=== PATIENT | male | born 1985 | race Two or more races ===

== ENCOUNTER 2016-05-26 10:57 | Emergency (ER) | payer MEDICAID ==
[~2016-05-26] VITALS: Ht 167.6 cm; Wt 54.4 kg
[~2016-05-26 10:57] MED LIST: ALBUTEROL SULF8.5 GM INH; AZITHROMYCIN250 MG ORAL; LACTULOSE20 GM/301 ORAL; NKM; PROMETHAZINE-C118 M1 ORAL; ROBITUSSIN AC5 ML ORAL; ZOFRAN4 M1 ORAL
[2016-05-26] MEDS ORDERED: TdaP Vaccine 0.5ml Syr IM ONE (11:30)
--- NOTE | 2016-05-26 11:59 | Diagnostic Imaging Report ---
Indication: PAIN Technique: XRAY HAND MIN 3V RIGHT Comparison: None. Findings: The osseous structures are intact. There is no fracture or destruction. The visualized joints are normal. The soft tissues are unremarkable. Impression: Normal.
[2016-05-26] MEDS ORDERED: Bacitracin Oint UD TOPIC ONE (12:15)
[2016-05-26] MEDS ORDERED: Lidocaine 1% Plain 30 ml INJ ONE (12:15)
[2016-05-26 13:10] VITALS: BP 112/66
--- NOTE | 2016-06-14 07:14 | Emergency Room Report ---
History of Present Illness General Chief Complaint: Laceration Source: Patient Present Illness HPI [id number] with laceration to right middle finger after accidentally dropping window on it. Unknown last tetanus. Pain only to right middle finger. he is right handed. Allergies: Coded Allergies: No Known Allergies (Unverified , 12/18/13) Patient History Past Medical History: none Past Surgical History: none Pertinent Family History: none Social History: Denies: alcohol use, drug use, smoking Immunizations: UTD Reviewed Nursing Documentation: PMH: Agreed, PSxH: Agreed Nursing Documentation-PMH Past Medical History: No Stated History Hx Cardiac Problems: No Hx Hypertension: No Hx Pacemaker: No Hx Asthma: Yes Hx COPD: Yes - Childhood Hx Diabetes: No Hx Cancer: No Hx Gastrointestinal Problems: No Hx Dialysis: No Hx Neurological Problems: No Hx Cerebrovascular Accident: No Hx Seizures: No Review of Systems All Other Systems: negative except mentioned in HPI Physical Exam Vital Signs Date Time Temp Pulse Resp B/P Pulse Ox O2 Delivery O2 Flow Rate FiO2 05/26/16 11:09 98.1 81 14 104/59 98 05/26/16 13:10 Room Air Sp02 EP Interpretation: reviewed, normal General Appearance: normal inspection, well appearing, no apparent distress, alert Head: atraumatic ENT: normal ENT inspection, hearing grossly normal, normal voice Neck: normal inspection, full range of motion, supple, no bony tend Respiratory: normal inspection, lungs clear, normal breath sounds, no respiratory distress, no retraction, no wheezing Cardiovascular #1: regular rate, rhythm, no edema Gastrointestinal: normal inspection, normal bowel sounds, non tender, soft, no guarding, no hernia Genitourinary: no CVA tenderness Musculoskeletal: other - Right hand: middle finger overlying PIP there is a 5cm linear laceration at dorsal aspect. Able to flex, extend. Doubt tendon involvement. No FB visualized. Wound explored to base. Neurologic: normal inspection, alert, oriented x3, responsive, rivet tester III-XII nml as tested, motor strength/tone normal, speech normal Psychiatric: normal inspection Skin: normal inspection, normal color, no rash Lymphatic: normal inspection Procedures Laceration/Wound Repair Laceration/Wound Repair : Consent: Verbal Wound Location: upper extremity Wound's Depth, Shape: superficial Wound Length (cm): 5 Wound Explored: clean Betadine Prep?: Yes Anesthesia: 1% Lidocaine Wound Debrided: minimal Wound Repaired With: sutures Suture Size/Type: 4:0, proline Number of Sutures: 5 Layer Closure?: No Sterile Dressing Applied?: Yes Splint Applied?: No Sling Applied?: No Patient Tolerated: Well Complications: None Medical Decision Making Diagnostic Impression: Primary Impression: Laceration ER Course No fracture or dislocation on ED review of XRAY Laceration repaired Tetanus updated DC home with followup parameters discussed Chest X-Ray Diagnostic Results Other Impression Right hand 3 views ED review No acute fracture, dislocation or soft tissue injury Last Vital Signs Date Time Temp Pulse Resp B/P Pulse Ox O2 Delivery O2 Flow Rate FiO2 05/26/16 13:10 98.0 05/26/16 13:10 77 16 112/66 100 Room Air Status: improved Disposition: HOME, SELF-CARE Condition: Stable Referrals: NOT CHOSEN IPA/,REFERRING (PCP) MARIZA STROEY M.D. June 14, 2016 07:14
== END 2016-05-26 13:10 | disposition home or self-care (01) ==
LOC: EMR 11:47
DX: S61.212A Laceration without foreign body of right middle finger without damage to nail, initial encounter (principal); Z23 Encounter for immunization; W22.8XXA Striking against or struck by other objects, initial encounter; Y93.9 Activity, unspecified; Y92.9 Unspecified place or not applicable; J45.909 Unspecified asthma, uncomplicated; J44.9 Chronic obstructive pulmonary disease, unspecified
CPT/HCPCS: 12002; 73130; 90471; 90715; 99283; J2001

== ENCOUNTER 2016-12-07 00:57 | Emergency (ER) | payer MEDICAID ==
[~2016-12-07] VITALS: Ht 165.1 cm; Wt 54.4 kg
[2016-12-07 01:20] VITALS: BP 128/80
[2016-12-07] MEDS ORDERED: IBUPROFEN600 MG ORAL (01:53)
[2016-12-07] MEDS ORDERED: AUGMENTIN 875-1 EAC1 ORAL (01:53)
[2016-12-07 02:35] VITALS: BP 128/80
--- NOTE | 2016-12-08 06:53 | Emergency Room Report ---
History of Present Illness General Chief Complaint: Toothache Source: Patient Present Illness HPI 32-year-old male no significant past medical history presenting with left lower tooth pain for more than one week. Throbbing. Patient states that he is still been able to eat and drink. Has not seen a dentist for quite a long time. No purulent drainage, no fever Allergies: Coded Allergies: No Known Allergies (Unverified , 12/18/13) Patient History Past Medical History: see triage record Past Surgical History: none Pertinent Family History: none Reviewed Nursing Documentation: PMH: Agreed, PSxH: Agreed Nursing Documentation-PMH Hx Cardiac Problems: No Hx Hypertension: No Hx Pacemaker: No Hx Asthma: Yes Hx COPD: Yes - Childhood Hx Diabetes: No Hx Cancer: No Hx Gastrointestinal Problems: No Hx Dialysis: No Hx Neurological Problems: No Hx Cerebrovascular Accident: No Hx Seizures: No Review of Systems All Other Systems: negative except mentioned in HPI Physical Exam Vital Signs Date Time Temp Pulse Resp B/P (MAP) Pulse Ox O2 Delivery O2 Flow Rate FiO2 12/07/16 01:07 97.7 66 18 128/80 99 Room Air Sp02 EP Interpretation: reviewed, normal General Appearance: normal inspection, well appearing, no apparent distress, alert, GCS 15, non-toxic Head: normocephalic, atraumatic Eyes: bilateral eye normal inspection, bilateral eye PERRL, bilateral eye EOMI ENT: normal pharynx, normal voice, moist mucus membranes, other - Poor dentition, left lower molar with dental caries, no periapical abscess however erythema/redness no purulent drainage Neck: normal inspection, full range of motion, supple Respiratory: normal inspection, lungs clear, normal breath sounds, no respiratory distress, no retraction, no wheezing, speaking full sentences, chest symmetrical Cardiovascular #1: normal inspection, regular rate, rhythm, no edema, normal capillary refill Cardiovascular #2: 2+ radial (R), 2+ radial (L) Gastrointestinal: normal inspection, non tender, soft, non-distended, no guarding Genitourinary: no CVA tenderness Musculoskeletal: normal inspection, back normal, normal range of motion, non- tender Neurologic: normal inspection, alert, oriented x3, responsive, motor strength/ tone normal, sensory intact, normal gait, speech normal Psychiatric: normal inspection, judgement/insight normal, memory normal Skin: normal inspection, normal color, no rash, warm/dry, well hydrated, normal turgor Medical Decision Making Diagnostic Impression: Primary Impression: Oral cellulitis Additional Impression: Toothache ER Course 31-year-old male with left lower tooth pain for more than one week DDX: Dental caries, no sign of abscess, oral cellulitis Plan: Pain control ER course: Patient has remained stable during ED stay. Disposition: Patient is to be discharged to home. Prescriptions given are Augmentin and Motrin Patient took to follow up with dentist in 2 days Strict return precautions discussed with patient such as fever, chills, worsening/severe pain, nausea, vomiting, which may indicate severe illness. Patient verbalizes understanding and agrees with plan. Please note that this Emergency Department Report was dictated using [employer] compliance representative technology software, occasionally this can lead to erroneous entry secondary to interpretation by the dictation equipment Last Vital Signs Date Time Temp Pulse Resp B/P (MAP) Pulse Ox O2 Delivery O2 Flow Rate FiO2 12/07/16 02:35 97.7 66 18 128/80 99 Room Air Disposition: HOME, SELF-CARE Condition: Stable Scripts Amoxicillin/Potassium Clav 875-125* (AUGMENTIN 875-125 TABLET*) 1 Each Tablet 1 TAB ORAL TWICE A DAY for 7 Days, #14 TAB 0 Refills Prov: Caitlin Christian M.D. 12/07/16 Ibuprofen* (MOTRIN*) 600 Mg Tablet 600 MG ORAL FOUR TIMES A DAY, #30 TAB 0 Refills Prov: Caitlin Christian M.D. 12/07/16 Patient Instructions: Cellulitis, Dental Pain Caitlin Christian M.D. Dec 08, 2016 06:53
== END 2016-12-07 02:35 | disposition home or self-care (01) ==
LOC: EMR 01:28
DX: K12.2 Cellulitis and abscess of mouth (principal); K08.89 Other specified disorders of teeth and supporting structures; J44.9 Chronic obstructive pulmonary disease, unspecified
CPT/HCPCS: 99284

== ENCOUNTER 2017-01-07 18:20 | Emergency (ER) | payer MEDICAID ==
[~2017-01-07] VITALS: Ht 165.1 cm; Wt 54.4 kg
[~2017-01-07 18:20] MED LIST changes: +AUGMENTIN 875-1 EAC1 ORAL; +IBUPROFEN600 MG ORAL
[2017-01-07] MEDS ORDERED: Norco 5mg/325mg tab ORAL ONE (19:00)
--- NOTE | 2017-01-07 19:43 | Emergency Room Report ---
History of Present Illness General Chief Complaint: Lower Extremity Injury Source: Patient Present Illness HPI 31-year-old male presents to the emergency department complaining of 8/10 in severity left heel pain and left lateral foot pain status post mechanical fall down several stairs earlier today. Patient denies hitting his head he denies loss of consciousness. Patient reports a mild swelling he currently is using crutches. Patient is wondering if he may have fractured one of the bones in his foot. Patient states pain is exacerbated upon walking. Denies numbness tingling or loss of sensation or gross motor movements of the extremities, incontinence of bowel or bladder. Denies CP, Palpitations, LOC, AMS, dizziness, Changes in Vision, Sensation, paresthesias, or a sudden severe headache. Allergies: Coded Allergies: No Known Allergies (Unverified , 12/18/13) Patient History Past Medical History: see triage record Past Surgical History: none Pertinent Family History: none Immunizations: UTD Reviewed Nursing Documentation: PMH: Agreed, PSxH: Agreed Nursing Documentation-PMH Past Medical History: No History, Except For Hx Cardiac Problems: No Hx Hypertension: No Hx Pacemaker: No Hx Asthma: Yes Hx COPD: Yes - Childhood Hx Diabetes: No Hx Cancer: No Hx Gastrointestinal Problems: No Hx Dialysis: No Hx Neurological Problems: No Hx Cerebrovascular Accident: No Hx Seizures: No Review of Systems All Other Systems: negative except mentioned in HPI Physical Exam Vital Signs Date Time Temp Pulse Resp B/P (MAP) Pulse Ox O2 Delivery O2 Flow Rate FiO2 01/07/17 18:34 97.9 85 16 114/73 98 Room Air Sp02 EP Interpretation: reviewed, normal General Appearance: no apparent distress, alert, GCS 15, non-toxic Head: normocephalic, atraumatic Eyes: bilateral eye normal inspection, bilateral eye PERRL ENT: hearing grossly normal, normal pharynx, no angioedema, normal voice Neck: full range of motion Respiratory: lungs clear, normal breath sounds, speaking full sentences Cardiovascular #1: regular rate, rhythm, normal capillary refill Cardiovascular #2: 2+ dorsalis pedis (R), 2+ dorsalis pedis (L) Musculoskeletal: back normal, gait/station normal, normal range of motion, tender - TTP to the left heel and lateral left foot. no obvious deformity no bruises. Neurologic: alert, oriented x3, responsive, motor strength/tone normal, sensory intact, speech normal Skin: normal color, no rash, warm/dry, well hydrated Medical Decision Making PA Attestation Dr. Meier is my supervising Physician whom patient management has been discussed with. Diagnostic Impression: Primary Impression: Sprain of foot, left Qualified Codes: S93.602A - Unspecified sprain of left foot, initial encounter Additional Impression: Left ankle sprain Qualified Codes: S93.402A - Sprain of unspecified ligament of left ankle, initial encounter ER Course Pt. presents to the ED c/o left heel and lateral foot pain s/p mechanical fall. Ddx considered but are not limited to Fracture, dislocation, contusion, Sprain/ Strain/Spasm Vital signs: are WNL, pt. is afebrile H&PE are most consistent with musculoskeletal injury will perform imaging to r/ o fractures/dislocations. ORDERS: - X-ray : negative ED INTERVENTIONS: - Percocet PO - Air Splint applied to the left ankle by sow farm barn technician. Pt. remains neurovascularly intact. DISCHARGE: At this time pt. is stable for d/c to home. Will provide printed patient care instructions, and any necessary prescriptions. Care plan and follow up instructions have been discussed with the patient prior to discharge. Last Vital Signs Date Time Temp Pulse Resp B/P (MAP) Pulse Ox O2 Delivery O2 Flow Rate FiO2 01/07/17 18:34 97.9 85 16 114/73 98 Room Air Disposition: HOME, SELF-CARE Condition: Stable Scripts Ibuprofen* (MOTRIN*) 600 Mg Tablet 600 MG ORAL THREE TIMES A DAY, #30 TAB 0 Refills Prov: Amie Fair 01/07/17 Departure Forms: Return to Work Return to Work Date: Jan 10, 2017 Work Restrictions: No Heavy Lifting, No Prolonged Standing Return to Full Activity: Jan 17, 2017 Patient Instructions: Ankle Sprain, Foot Sprain Additional Instructions: Take medications as directed. Follow up with a Primary Care Provider in 3-5 days, even if your symptoms have resolved. --Please review list of primary care clinics, if you do not already have a primary care provider Return sooner to ED if new symptoms occur, or current symptoms become worse. - Please note that this Emergency Department Report was dictated using [employer]ive writing teacher technology software, occasionally this can lead to erroneous entry secondary to interpretation by the dictation equipment. Amie Fair Jan 07, 2017 19:43
[2017-01-07] MEDS ORDERED: IBUPROFEN600 MG ORAL (19:47)
[2017-01-07 19:57] VITALS: BP 114/73
--- NOTE | 2017-01-08 09:49 | Diagnostic Imaging Report ---
Indication: PAIN Technique: 3 views left foot Comparison: none Findings: No acute fractures. No dislocations. Joint spaces are preserved. Impression: Negative
== END 2017-01-07 19:57 | disposition home or self-care (01) ==
LOC: EMR 18:58
DX: S93.602A Unspecified sprain of left foot, initial encounter (principal); S93.402A Sprain of unspecified ligament of left ankle, initial encounter; W10.9XXA Fall (on) (from) unspecified stairs and steps, initial encounter; Y92.89 Other specified places as the place of occurrence of the external cause; J44.9 Chronic obstructive pulmonary disease, unspecified
CPT/HCPCS: 99283

== ENCOUNTER 2017-02-08 19:59 | Emergency (ER) | payer MEDICAID ==
[~2017-02-08] VITALS: Ht 165.1 cm; Wt 54.4 kg
[2017-02-08 20:20] VITALS: BP 131/84
[2017-02-08] MEDS ORDERED: ZOFRAN ODT4 MG ORAL (20:46)
[2017-02-08 21:00] VITALS: BP 131/84
--- NOTE | 2017-02-10 08:53 | Emergency Room Report ---
History of Present Illness General Chief Complaint: Abdominal Pain Source: Patient Present Illness HPI Patient was at his has had recent flulike symptoms with increased cough Soon after that patient developed increased abdominal discomfort Epigastric pressure and vomiting Ongoing for the past 2 days Denies any fevers or chills denies any obvious diarrhea at this time Denies any rash Pain is 3/10 cramping in nature and pressure Denies any neck pain or photophobia Allergies: Coded Allergies: No Known Allergies (Unverified , 12/18/13) Patient History Past Medical History: see triage record Pertinent Family History: none Reviewed Nursing Documentation: PMH: Agreed, PSxH: Agreed Nursing Documentation-PMH Hx Cardiac Problems: No Hx Hypertension: No Hx Pacemaker: No Hx Asthma: Yes Hx COPD: Yes - Childhood Hx Diabetes: No Hx Cancer: No Hx Gastrointestinal Problems: No Hx Dialysis: No Hx Neurological Problems: No Hx Cerebrovascular Accident: No Hx Seizures: No Review of Systems All Other Systems: negative except mentioned in HPI Physical Exam Vital Signs Date Time Temp Pulse Resp B/P (MAP) Pulse Ox O2 Delivery O2 Flow Rate FiO2 02/08/17 20:08 97.9 99 18 131/84 100 Room Air Sp02 EP Interpretation: reviewed, normal General Appearance: well appearing, no apparent distress Head: normocephalic, atraumatic Eyes: bilateral eye PERRL, bilateral eye EOMI ENT: hearing grossly normal, normal pharynx, TMs + canals normal, uvula midline Neck: full range of motion, supple, no meningismus, no bony tend Respiratory: lungs clear, normal breath sounds, no rhonchi, no respiratory distress, no retraction, no accessory muscle use Cardiovascular #1: normal peripheral pulses, regular rate, rhythm, no edema, no gallop, no JVD, no murmur Gastrointestinal: normal bowel sounds, non tender, soft, no mass, no organomegaly, non-distended, no guarding, no hernia, no pulsatile mass, no rebound Genitourinary: no CVA tenderness Musculoskeletal: normal inspection Neurologic: oriented x3, responsive, dredge worker III-XII nml as tested, motor strength/ tone normal, sensory intact Psychiatric: mood/affect normal Skin: normal color, no rash, warm/dry, palpation normal Lymphatic: normal inspection, no adenopathy Medical Decision Making Diagnostic Impression: Primary Impression: flu symptoms ER Course Patient has a benign abdominal exam appears clinically hydrated patient will have intervention for the vomiting At this time appears to have findings appropriate for flu symptoms and will have initial conservative outpatient trial Last Vital Signs Date Time Temp Pulse Resp B/P (MAP) Pulse Ox O2 Delivery O2 Flow Rate FiO2 02/08/17 21:00 99 18 131/84 100 Room Air 02/08/17 20:20 97.9 Status: improved Disposition: HOME, SELF-CARE Condition: Improved Scripts Ondansetron Odt* (ZOFRAN ODT*) 4 Mg Tab.rapdis 4 MG ORAL Q6H Y for Nausea & Vomiting, #15 TAB 0 Refills Prov: MADAN CURRAN D.O. 02/08/17 Referrals: NOT CHOSEN IPA/MD,REFERRING (PCP) Patient Instructions: Influenza, Adult, [id number], Abdominal Pain, Adult Additional Instructions: Patient is provided with the discharge instructions notified to follow up with primary doctor in the next 2-3 days otherwise return to the er with any worsening symptoms. Please note that this report is being documented using [employer] technology. This can lead to erroneous entry secondary to incorrect interpretation by the dictating instrument. MADAN CURRAN D.O. Feb 10, 2017 08:53
== END 2017-02-08 21:00 | disposition home or self-care (01) ==
LOC: EMR 20:25
DX: J11.1 Influenza due to unidentified influenza virus with other respiratory manifestations (principal); J45.909 Unspecified asthma, uncomplicated; J44.9 Chronic obstructive pulmonary disease, unspecified; R10.13 Epigastric pain
CPT/HCPCS: 99282

== ENCOUNTER 2017-05-10 17:11 | Emergency (ER) | payer MEDICAID ==
[~2017-05-10] VITALS: Ht 167.6 cm; Wt 54.4 kg
[~2017-05-10 17:11] MED LIST changes: +ZOFRAN ODT4 MG ORAL
--- NOTE | 2017-05-10 17:36 | Emergency Room Report ---
History of Present Illness General Chief Complaint: General Complaint Source: Patient, Medical Record Present Illness HPI The patient presents with chest pain. It's been intermittent for several weeks. It seems worse sometimes by eating. It gets better with drinking water. He feels his stomach bubbling. He does drink hard liquor but not every day. He denies smoking or other drugs. He feels dehydrated this time. He denies any fevers, chills, productive cough, sore throat. The pain is rated 5/ 10 and radiates somewhat to his through his mid chest. He has not taken any medication for this pain. The patient denies any vomiting or hematemesis. There is no melena or blood in the stool. He denies dysuria or rashes. He has been treated in the past for URI with antibiotics and albuterol. Denies wheezing. Allergies: Coded Allergies: No Known Allergies (Unverified , 12/18/13) Patient History Past Medical History: see triage record Social History: Reports: alcohol use; Denies: smoking, drug use - [facility] Social History Narrative here with son Reviewed Nursing Documentation: PMH: Agreed; PSxH: Agreed Nursing Documentation-PMH Past Medical History: No History, Except For Hx Cardiac Problems: No Hx Hypertension: No Hx Pacemaker: No Hx Asthma: Yes Hx COPD: Yes - Childhood Hx Diabetes: No Hx Cancer: No Hx Gastrointestinal Problems: No Hx Dialysis: No Hx Neurological Problems: No Hx Cerebrovascular Accident: No Hx Seizures: No Review of Systems All Other Systems: negative except mentioned in HPI Physical Exam Vital Signs Date Time Temp Pulse Resp B/P (MAP) Pulse Ox O2 Delivery O2 Flow Rate FiO2 05/10/17 17:14 99.5 90 18 136/91 96 Room Air 99.5 Sp02 EP Interpretation: reviewed, normal General Appearance: well appearing, no apparent distress, GCS 15 Head: normocephalic Eyes: bilateral eye normal inspection, bilateral eye PERRL ENT: moist mucus membranes Neck: supple Respiratory: lungs clear, normal breath sounds Cardiovascular #1: regular rate, rhythm Cardiovascular #2: 2+ radial (R) Gastrointestinal: normal inspection, normal bowel sounds, non tender, no mass, non-distended, scaphoid Musculoskeletal: back normal, gait/station normal, normal range of motion Neurologic: alert, oriented x3, grossly normal Psychiatric: mood/affect normal Skin: normal inspection, warm/dry Medical Decision Making Diagnostic Impression: Primary Impression: Chest pain Qualified Codes: R07.9 - Chest pain, unspecified Additional Impression: Alcohol use ER Course The patient presents with chest pain that's been intermittent for several weeks. Differential includes: coronary cause, esophagitis, esophageal spasm, gastritis, peptic ulcer disease, costochondritis, PE amongst others. His history sounds more GI in origin however we need to evaluate his heart. Evaluation will be with EKG, chest x-ray and labs. The patient will be treated with IV hydration, Pepcid and Mylanta. History and exam against PE. EKG without injury. CXR normal. Labs with negative troponin. CBC and CMP normal. + THC. Patient improved with treatment. Discussed findings and possible etiologies with patient. Patient stable for outpatient observation and treatment. Laboratory Tests Test 05/10/17 17:39 White Blood Count 10.1 K/UL (4.8-10.8) Red Blood Count 5.18 M/UL (4.70-6.10) Hemoglobin 16.8 G/DL (14.2-18.0) Hematocrit 48.6 % (42.0-52.0) Mean Corpuscular Volume 94 FL (80-99) Mean Corpuscular Hemoglobin 32.5 PG (27.0-31.0) H Mean Corpuscular Hemoglobin Concent 34.6 G/DL (32.0-36.0) Red Cell Distribution Width 10.8 % (11.6-14.8) L Platelet Count 196 K/UL (150-450) Mean Platelet Volume 8.8 FL (6.5-10.1) Neutrophils (%) (Auto) 68.9 % (45.0-75.0) Lymphocytes (%) (Auto) 21.8 % (20.0-45.0) Monocytes (%) (Auto) 6.4 % (1.0-10.0) Eosinophils (%) (Auto) 1.8 % (0.0-3.0) Basophils (%) (Auto) 1.0 % (0.0-2.0) Urine Color Pale yellow Urine Appearance Clear Urine pH 7 (4.5-8.0) Urine Specific [place] 1.005 (1.005-1.035) Urine Protein Negative (NEGATIVE) Urine Glucose (UA) Negative (NEGATIVE) Urine Ketones Negative (NEGATIVE) Urine Occult Blood Negative (NEGATIVE) Urine Nitrite Negative (NEGATIVE) Urine Bilirubin Negative (NEGATIVE) Urine Urobilinogen Normal MG/DL (0.0-1.0) Urine Leukocyte Esterase Negative (NEGATIVE) Sodium Level 142 MMOL/L (136-145) Potassium Level 3.5 MMOL/L (3.5-5.1) Chloride Level 104 MMOL/L (98-107) Carbon Dioxide Level 28 MMOL/L (21-32) Anion Gap 10 mmol/L (5-15) Blood Urea Nitrogen 11 mg/dL (7-18) Creatinine 0.8 MG/DL (0.55-1.30) Estimate Glomerular Filtration Rate > 60 mL/min (>60) Glucose Level 105 MG/DL (74-106) Calcium Level 9.1 MG/DL (8.5-10.1) Total Bilirubin 0.8 MG/DL (0.2-1.0) Aspartate Amino Transferase (AST) 16 U/L (15-37) Alanine Aminotransferase (ALT) 22 U/L (12-78) Alkaline Phosphatase 95 U/L (46-116) Total Creatine Kinase 107 U/L (26-308) Troponin I 0.000 ng/mL (0.000-0.056) Total Protein 7.6 G/DL (6.4-8.2) Albumin 4.3 G/DL (3.4-5.0) Globulin 3.3 g/dL Albumin/Globulin Ratio 1.3 (1.0-2.7) Urine Opiates Screen Negative (NEGATIVE) Urine Barbiturates Screen Negative (NEGATIVE) Phencyclidine (PCP) Screen Negative (NEGATIVE) Urine Amphetamines Screen Negative (NEGATIVE) Urine Benzodiazepines Screen Negative (NEGATIVE) Urine Cocaine Screen Negative (NEGATIVE) Urine Marijuana (THC) Screen Positive (NEGATIVE) H EKG Diagnostic Results Rate: normal Rhythm: NSR ST Segments: no acute changes Rhythm Strip Diag. Results EP Interpretation: yes Rhythm: NSR, no PVC's, no ectopy Chest X-Ray Diagnostic Results Chest X-Ray Diagnostic Results : Chest X-Ray Ordered: Yes # of Views/Limited/Complete: 1 View Indication: Chest Pain Interpretation: no consolidation, no effusion, no pneumothorax Impression: No acute disease Electronically Signed by: Electronically signed by Pk Dugan MD Last Vital Signs Date Time Temp Pulse Resp B/P (MAP) Pulse Ox O2 Delivery O2 Flow Rate FiO2 05/10/17 19:30 98.2 64 16 133/84 99 Room Air 99.5 Status: improved Disposition: HOME, SELF-CARE Condition: Improved Scripts Acetaminophen (Tylenol) 325 Mg Tablet 650 MG ORAL Q6H PRN for Prn Pain/Headache/Temp > 101, #20 TAB 0 Refills Prov: Pk Dugan M.D. 05/10/17 Mag Hydrox/Al Hydrox/Simeth (MAALOX MAXIMUM STRENGTH SUSP) 355 Ml Oral.susp 30 ML PO Q6HR PRN for chest pain, #240 ML Prov: Pk Dugan M.D. 05/10/17 Famotidine (PEPCID) 20 Mg Tablet 20 MG ORAL DAILY, #30 TAB 0 Refills Prov: Pk Dugan M.D. 05/10/17 Pk Dugan M.D. May 10, 2017 17:36
[2017-05-10 17:44] VITALS: BP 136/91
[2017-05-10] MEDS ORDERED: Mylanta II UD 30ml ORAL ONE (17:45)
[2017-05-10 17:50] LABS: EOSINOPHILS % (AUTO) 1.8 % (0.0-3.0); HEMATOCRIT 48.6 % (42.0-52.0); HEMOGLOBIN 16.8 G/DL (14.2-18.0); LYMPHOCYTES % (AUTO) 21.8 % (20.0-45.0); MEAN CORPUSCULAR VOLUME 94 FL (80-99); MONOCYTES % (AUTO) 6.4 % (1.0-10.0); NEUTROPHILS % (AUTO) 68.9 % (45.0-75.0); PLATELET COUNT 196 K/UL (150-450); RED BLOOD COUNT 5.18 M/UL (4.70-6.10); RED CELL DISTRIBUTION WIDTH 10.8 % (11.6-14.8); WHITE BLOOD COUNT 10.1 K/UL (4.8-10.8)
[2017-05-10 17:55] LABS: APPEARANCE,URINE CLEAR; BILIRUBIN, URINE NEGATIVE (NEGATIVE); COLOR,URINE PALE YELLOW; GLUCOSE, URINE (UA) NEGATIVE (NEGATIVE); KETONES,URINE NEGATIVE (NEGATIVE); LEUKOCYTE ESTERASE ,URINE NEGATIVE (NEGATIVE); NITRITE,URINE NEGATIVE (NEGATIVE); PH,URINE 7 (4.5-8.0); PROTEIN,URINE NEGATIVE (NEGATIVE); UROBILINOGEN,URINE NORMAL MG/DL (0.0-1.0)
[2017-05-10 18:29] LABS: ALANINE AMINOTRANSFERASE 22 U/L (12-78); ALBUMIN 4.3 G/DL (3.4-5.0); ALBUMIN/GLOBULIN RATIO 1.3 (1.0-2.7); ALKALINE PHOSPHATASE 95 U/L (46-116); ANION GAP 10 mmol/L (5-15); ASPARTATE AMINO TRANSFERASE 16 U/L (15-37); BILIRUBIN,TOTAL 0.8 MG/DL (0.2-1.0); BLOOD UREA NITROGEN 11 mg/dL (7-18); CALCIUM 9.1 MG/DL (8.5-10.1); CARBON DIOXIDE 28 MMOL/L (21-32); CHLORIDE 104 MMOL/L (98-107); CREATINE KINASE 107 U/L (26-308); CREATININE 0.8 MG/DL (0.55-1.30); POTASSIUM 3.5 MMOL/L (3.5-5.1); SODIUM 142 MMOL/L (136-145)
[2017-05-10] MEDS ORDERED: MAALOX MAXIMUM355 M1 PO (19:26)
[2017-05-10] MEDS ORDERED: PEPCID20 MG ORAL (19:26)
[2017-05-10] MEDS ORDERED: TYLENOL325 MG ORAL (19:26)
--- NOTE | 2017-05-11 09:30 | Diagnostic Imaging Report ---
Indication: Reason For Exam: CP Technique: XRAY Chest 1v Comparison: 07/29/2014. Findings: The cardiomediastinal silhouette is normal. The lungs are clear. There is no evidence of pleural fluid. The bones are unremarkable. Impression: Normal chest.
--- NOTE | 2017-05-11 18:08 | Cardiology Report ---
APPROVED REPORT EKG Measurement Heart [id number] Normal sinus rhythm Normal ECG
== END 2017-05-10 19:30 | disposition home or self-care (01) ==
LOC: EMR 17:50
DX: R07.9 Chest pain, unspecified (principal); Z72.89 Other problems related to lifestyle; J44.9 Chronic obstructive pulmonary disease, unspecified
CPT/HCPCS: 36415; 71045; 80053; 80307; 81003; 82550; 84484; 85025; 93005; 96374; 96375; 99284; S0028

== ENCOUNTER 2018-06-19 14:40 | Emergency (ER) | payer MEDICAID ==
[~2018-06-19] VITALS: Ht 167.6 cm; Wt 54.4 kg
[~2018-06-19 14:40] MED LIST changes: +MAALOX MAXIMUM355 M1 PO; +PEPCID20 MG ORAL; +TYLENOL325 MG ORAL
--- NOTE | 2018-06-19 14:58 | Emergency Room Report ---
History of Present Illness General Chief Complaint: Earache Source: Patient Present Illness HPI 32-year-old male with no significant past medical history here complaining of low hearing and pain in left ear after he showered yesterday. Denies sore throat, fever chills, history of ear infections, rhinorrhea, or Q-tip use. Patient reports pain in the left ear upon touching the tragus and feels he is low on hearing in his ear is also clogged. She is rating the pain 3 out of 10, intermittent, and has not taken any medication for pain. Denies chest pain, S OB, palpitation, and all other associated symptoms. Denies vertigo and dizziness, tinnitus. Allergies: Coded Allergies: No Known Allergies (Unverified , 12/18/13) Patient History Past Medical History: see triage record Past Surgical History: unable to obtain Pertinent Family History: none Immunizations: UTD Reviewed Nursing Documentation: PMH: Agreed; PSxH: Agreed Nursing Documentation-PMH Past Medical History: No Stated History Hx Cardiac Problems: No Hx Hypertension: No Hx Pacemaker: No Hx Asthma: Yes Hx COPD: Yes - Childhood Hx Diabetes: No Hx Cancer: No Hx Gastrointestinal Problems: No Hx Dialysis: No Hx Neurological Problems: No Hx Cerebrovascular Accident: No Hx Seizures: No Review of Systems All Other Systems: negative except mentioned in HPI Physical Exam Vital Signs Date Time Temp Pulse Resp B/P (MAP) Pulse Ox O2 Delivery O2 Flow Rate FiO2 06/19/18 14:50 98.1 86 18 96 Room Air Sp02 EP Interpretation: reviewed, normal General Appearance: normal inspection, well appearing Head: normocephalic Eyes: bilateral eye normal inspection, bilateral eye PERRL ENT: hearing grossly normal, normal pharynx, other - Cerumen impaction of left ear, also left tragus tender to palpation however TM was not visualized and external ear canal was not visualized due to excess amount of cerumen Neck: normal inspection, full range of motion, supple Respiratory: normal inspection, lungs clear, no rhonchi, no wheezing Cardiovascular #1: normal inspection, normal peripheral pulses, regular rate, rhythm Gastrointestinal: normal inspection, non tender Genitourinary: no CVA tenderness Musculoskeletal: normal inspection, back normal Neurologic: normal inspection, alert, oriented x3 Psychiatric: normal inspection, judgement/insight normal Skin: normal inspection, normal color, no rash, warm/dry Lymphatic: normal inspection, no adenopathy Medical Decision Making PA Attestation All my diagnosis and treatment plans were reviewed ad discussed with my supervising physician Dr. Flores Diagnostic Impression: Primary Impression: Impacted cerumen of right ear Additional Impression: Otitis externa ER Course 32-year-old male with no significant past medical history here complaining of low hearing and pain in left ear after he showered yesterday. Denies sore throat, fever chills, history of ear infections, rhinorrhea, or Q-tip use. Patient reports pain in the left ear upon touching the tragus and feels he is low on hearing in his ear is also clogged. She is rating the pain 3 out of 10, intermittent, and has not taken any medication for pain. Denies chest pain, S OB, palpitation, and all other associated symptoms. Denies vertigo and dizziness, tinnitus. Ddx considered but are not limited to: OM, OE, cerumen impaction, mastoiditis Vital signs: are WNL, pt. is afebrile H&PE are most consistent with: OE and cerumen impaction ORDERS: debrox, ofloxacin otic ED INTERVENTIONS: None required at this time. DISCHARGE: At this time pt. is stable for d/c to home. Will provide printed patient care instructions, and any necessary prescriptions. Care plan and follow up instructions have been discussed with the patient prior to discharge. Due to excess cerumen in left ear use Debrox for 3 days and then follow-up with the primary care provider for ear lavage also referral to ENT may be needed Last Vital Signs Date Time Temp Pulse Resp B/P (MAP) Pulse Ox O2 Delivery O2 Flow Rate FiO2 06/19/18 14:50 98.1 86 18 96 Room Air Disposition: HOME, SELF-CARE Condition: Stable Scripts Ofloxacin (OFLOXACIN) 5 Ml Drops 2 DROP OT QID, #5 ML Prov: Juan Pablo Alexandra 06/19/18 Carbamide Peroxide (DEBROX) 15 Ml Drops 10 DROP LEFT EAR TWICE A DAY for 4 Days, #15 ML 0 Refills Prov: Juan Pablo Alexandra 06/19/18 Patient Instructions: Cerumen Impaction, Otitis Externa, [id number] Additional Instructions: Use eardrops as directed, follow-up with your primary care provider for ear lavage Juan Pablo Alexandra June 19, 2018 14:58
[2018-06-19] MEDS ORDERED: DEBROX15 M1 LEFT EAR (15:01)
[2018-06-19] MEDS ORDERED: OFLOXACIN5 ML OT (15:01)
[2018-06-19 16:04] VITALS: BP 103/69
[2018-06-19 16:06] VITALS: BP 103/69
--- NOTE | 2018-06-19 16:06 | NUR ---
ER DISCHARGE NOTE: Patient is cleared to be discharged per ERMD, pt is aox4, on room air, with stable vital signs. pt was given dc and prescription instructions, pt was able to verbalize understanding, pt is able to ambulate with steady gait. pt took all belongings.
== END 2018-06-19 15:30 | disposition home or self-care (01) ==
LOC: EMR 15:23
DX: H61.22 Impacted cerumen, left ear (principal); H60.92 Unspecified otitis externa, left ear; J45.909 Unspecified asthma, uncomplicated
CPT/HCPCS: 99282

== ENCOUNTER 2019-02-23 20:17 | Emergency (ER) | payer MEDICAID ==
[~2019-02-23] VITALS: Ht 167.6 cm; Wt 54.4 kg
[~2019-02-23 20:17] MED LIST changes: +DEBROX15 M1 LEFT EAR; +OFLOXACIN5 ML OT
[2019-02-23 20:30] VITALS: BP 138/97
--- NOTE | 2019-02-23 20:30 | NUR ---
ED Nurse Note: Pt walked into ED for c/o intermittent abdominal pain since last night. Pt states when the pain starts it is sharp in nature and 9/10 pain. Pt also reports 4-5 episodes of diarrhea in the past day. pt is aaox4, no cardiac or respiratory distress noted. Will continue to monitor.
--- NOTE | 2019-02-23 20:41 | Emergency Room Report ---
History of Present Illness General Chief Complaint: Abdominal Pain Source: Patient Present Illness HPI Disclaimer: Please note that this report is being documented using [employer] technology. This can lead to erroneous entry secondary to incorrect interpretation by the dictating instrument. HPI: 33-year-old male presents for evaluation of abdominal pain. Symptoms began last night. He states he ate a burrito but this was not an obvious inciting factor. He notes a sharp and stabbing intermittent periumbilical pain that lasts less than 5 seconds and seems to come and go at random. No exacerbating or relieving factors are noted. Currently he is pain-free. Last felt the pain approximately 35 minutes ago. He noted some diarrhea overnight and some loose stools today though it seems to be improving. Denies melena. Denies nausea, vomiting, dysuria, hematuria, fevers, chills, chest pain, shortness of breath or any other associated symptoms. Otherwise in his usual state of health and currently he does at his baseline without complaints. Has not taken any medication prior to arrival. Last drink alcohol 3 or 4 days ago. PMH: Denies PSH: Denies Allergies: Denies Social Hx: Occasional alcohol use Allergies: Coded Allergies: No Known Allergies (Unverified , 12/18/13) Nursing Documentation-PMH Hx Cardiac Problems: No Hx Hypertension: No Hx Pacemaker: No Hx Asthma: Yes - childhood Hx COPD: No Hx Diabetes: No Hx Cancer: No Hx Gastrointestinal Problems: No Hx Dialysis: No History Of Psychiatric Problem: No Hx Neurological Problems: No Hx Cerebrovascular Accident: No Hx Seizures: No Review of Systems All Other Systems: negative except mentioned in HPI Physical Exam Vital Signs Date Time Temp Pulse Resp B/P (MAP) Pulse Ox O2 Delivery O2 Flow Rate FiO2 02/23/19 20:19 99.0 94 16 138/97 (111) 96 Room Air General: Awake and alert, no acute distress HEENT: NC/AT. EOMI. Cardiovascular: RRR. S1 and S2 normal. No murmur appreciated Resp: Normal work of breathing. No cough, wheezing or crackles appreciated Abdomen: Abdomen is soft, nondistended. Nontender, no masses, no rebound, negative Goyal's. Skin: Intact. No abrasions, laceration or rash over the exposed skin MSK: Normal tone and bulk. Moving all extremities. No obvious deformity. Neuro: Awake and alert. Mentating appropriately. Medical Decision Making Diagnostic Impression: Primary Impression: Abdominal pain ER Course This is a 33-year-old male presenting for evaluation of sharp intermittent epigastric pain lasting less than 5 seconds over the past day as well as loose stools over the past 24 hours. Currently he is asymptomatic, no acute distress , no reproducible tenderness on exam and overall he is well-appearing with stable vital signs. Differential includes was not limited to gastritis, gastroenteritis, pancreatitis, cholecystitis, appendicitis, obstruction, UTI. Of these, a viral syndrome is most likely with some intermittent abdominal cramping. Diarrhea appears to be improving. No signs of dehydration clinically. At this time I do not believe he requires emergent labs or imaging. We will prescribe him Zofran to use as needed and follow-up with his PMD. I told him that if his symptoms persist or worsen he should return to the emergency department for reevaluation. He understands and agrees this plan will be discharged home. Last Vital Signs Date Time Temp Pulse Resp B/P (MAP) Pulse Ox O2 Delivery O2 Flow Rate FiO2 02/23/19 20:30 99.0 94 16 138/97 96 Room Air Disposition: HOME, SELF-CARE Condition: Stable Scripts Dicyclomine Hcl* (DICYCLOMINE HCL*) 10 Mg Capsule 10 MG ORAL TID, #10 CAP Prov: Eloy Romero MD 02/23/19 Ondansetron Odt* (ZOFRAN ODT*) 4 Mg Tab.rapdis 4 MG BC EVERY 6 HOURS PRN for Nausea & Vomiting, #20 TAB 0 Refills Prov: Eloy Romero MD 02/23/19 Eloy Romero MD Feb 23, 2019 20:41
[2019-02-23] MEDS ORDERED: DICYCLOMINE HCL10 MG ORAL (20:45)
[2019-02-23] MEDS ORDERED: ONDANSETRON ODT4 MG BC (20:45)
[2019-02-23 20:50] VITALS: BP 138/97
--- NOTE | 2019-02-23 20:50 | NUR ---
ER DISCHARGE NOTE: Patient is cleared to be discharged per ERMD, pt is aox4, on room air, with stable vital signs. pt was given dc and prescription instructions, pt was able to verbalize understanding, pt id band removed. pt is able to ambulate with steady gait. pt took all belongings.
== END 2019-02-23 22:00 | disposition home or self-care (01) ==
LOC: EMR 20:39
DX: R10.13 Epigastric pain (principal); R19.7 Diarrhea, unspecified
CPT/HCPCS: 99282

== ENCOUNTER 2019-06-16 13:20 | Emergency (ER) | payer MEDICAID, OTHER ==
[~2019-06-16] VITALS: Ht 162.6 cm; Wt 54.4 kg
[~2019-06-16 13:20] MED LIST changes: +DICYCLOMINE HCL10 MG ORAL; +GUAIFENESI100 MG/5 M ORAL; +LIDODERM700 M1 TOPIC; +ONDANSETRON ODT4 MG BC
[2019-06-16 13:44] VITALS: BP 121/85
--- NOTE | 2019-06-16 13:59 | Emergency Room Report ---
History of Present Illness General Chief Complaint: Pain Source: Patient Present Illness HPI 33-year-old male with no significant past medical history here complaining of 1 day of blister formation mentioned inside his left side of mouth with minimal swelling. Denies any sore throat, fever and chills, cough and congestion. Reports that he had recent dental work about a month ago and grinds his teeth at night. Denies any chest pain, shortness of breath, cough and congestion. Reports that the pain is only worse when food touches the area or his teeth come in contact with the blisters. Allergies: Coded Allergies: No Known Allergies (Unverified , 06/16/19) COVID-19 Screening Contact w/high risk pt: No Recent Travel to affected area: No Experienced COVID-19 symptoms?: No Patient History Past Medical History: see triage record Past Surgical History: none Pertinent Family History: none Immunizations: UTD Reviewed Nursing Documentation: PMH: Agreed; PSxH: Agreed Nursing Documentation-PMH Past Medical History: No History, Except For Hx Cardiac Problems: No Hx Hypertension: No Hx Pacemaker: No Hx Asthma: Yes - childhood Hx COPD: No Hx Diabetes: No Hx Cancer: No Hx Gastrointestinal Problems: No Hx Dialysis: No Hx Neurological Problems: No Hx Cerebrovascular Accident: No Hx Seizures: No Review of Systems All Other Systems: negative except mentioned in HPI Physical Exam Vital Signs Date Time Temp Pulse Resp B/P (MAP) Pulse Ox O2 Delivery O2 Flow Rate FiO2 06/16/19 13:33 98.4 99 18 121/85 (97) 94 Room Air Sp02 EP Interpretation: reviewed, normal General Appearance: no apparent distress, alert, GCS 15, non-toxic Head: normocephalic, atraumatic Eyes: bilateral eye normal inspection, bilateral eye PERRL ENT: hearing grossly normal, normal pharynx, no angioedema, normal voice, other - Aphthous ulcer noted in bilateral maxilla Neck: full range of motion, supple/symm/no masses Respiratory: chest non-tender, lungs clear, normal breath sounds, no rhonchi, no wheezing, speaking full sentences Cardiovascular #1: regular rate, rhythm, no edema, no murmur Gastrointestinal: normal bowel sounds, non tender, soft, non-distended, no guarding, no rebound Rectal: deferred Genitourinary: no CVA tenderness Musculoskeletal: back normal Neurologic: alert, oriented Psychiatric: normal inspection Skin: no rash Lymphatic: no adenopathy Medical Decision Making PA Attestation All my diagnosis and treatment plans were reviewed ad discussed with my supervising physician Dr. Cooper Diagnostic Impression: Primary Impression: Aphthous stomatitis ER Course 33-year-old male with no significant past medical history here complaining of 1 day of blister formation mentioned inside his left side of mouth with minimal swelling. Denies any sore throat, fever and chills, cough and congestion. Reports that he had recent dental work about a month ago and grinds his teeth at night. Denies any chest pain, shortness of breath, cough and congestion. Reports that the pain is only worse when food touches the area or his teeth come in contact with the blisters. Ddx considered but are not limited to: HSV rash, aphthous ulcer, dental abscess Vital signs: are WNL, pt. is afebrile H&PE are most consistent with: Aphthous stomatitis ORDERS: Augmentin, lidocaine viscous, ibuprofen ED INTERVENTIONS: None required at this time. DISCHARGE: At this time pt. is stable for d/c to home. Will provide printed patient care instructions, and any necessary prescriptions. Care plan and follow up instructions have been discussed with the patient prior to discharge. Patient to follow-up with a dentist as this is most likely secondary to grinding of his teeth also follow-up primary doctor, take medication as directed , if worsening symptoms return to the emergency room Last Vital Signs Date Time Temp Pulse Resp B/P (MAP) Pulse Ox O2 Delivery O2 Flow Rate FiO2 06/16/19 13:44 98.4 99 18 121/85 94 Room Air Disposition: HOME, SELF-CARE Condition: Stable Scripts Lidocaine HCl (Lidocaine HCl Viscous) 100 Ml Solution 20 ML MM TID, #120 ML Prov: Juan Pablo Alexandra 06/16/19 Ibuprofen* (MOTRIN*) 400 Mg Tablet 400 MG ORAL THREE TIMES A DAY, #30 TAB 0 Refills Prov: Juan Pablo Alexandra 06/16/19 Amoxicillin/Potassium Clav 875-125* (AUGMENTIN 875-125 TABLET*) 1 Each Tablet 1 TAB ORAL TWICE A DAY for 10 Days, #20 TAB Prov: Juan Pablo Alexandra 06/16/19 Referrals: KRUPA BUCHANAN,REFERRING (PCP) Patient Instructions: Canker Sores, Stomatitis, [id number] Additional Instructions: Take medication as directed, follow with your primary doctor, if worsening symptoms return to emergency room Juan Pablo Alexandra June 16, 2019 13:59
[2019-06-16] MEDS ORDERED: IBUPROFEN400 MG ORAL (14:01)
[2019-06-16] MEDS ORDERED: AUGMENTIN 875-1 EAC1 ORAL (14:01)
[2019-06-16] MEDS ORDERED: LIDOCAINE20 MG/1 M1 MM (14:01)
[2019-06-16 14:06] VITALS: BP 121/85
== END 2019-06-16 14:07 | disposition home or self-care (01) ==
LOC: EMR 13:42
DX: K12.0 Recurrent oral aphthae (principal)
CPT/HCPCS: 99282